=== PATIENT | male | born 1935 | race Caucasian/White ===

== ENCOUNTER 2024-08-08 14:25 | Inpatient (IN) | payer MEDICARE, SELFPAY ==
--- NOTE | ~2024-08-08 | CT_ITS ---
CLINICAL HISTORY: acute kidney injury CT abdomen and pelvis without contrast Comparison: None Findings: Limited examination without contrast. Lung bases are clear. No pleural effusion. Liver, Spleen and both adrenals show normal size, shape and attenuation on present unenhanced scan. No CBD dilatation. Cholecystectomy. The pancreas is atrophic. Limited evaluation of the multiple renal cysts measuring up to 10 cm on the right. There is mild calcification along the wall of multiple renal cysts. There are indeterminate lesions of the upper and lower pole right kidney measuring 1.7 x 1.9 cm in the upper pole series 3, image 18. No hydronephrosis. Calcifications of the bilateral renal pelvis could represent vascular calcification or kidney stone. The IVC, aorta and portal vein are within normal position and caliber. Atherosclerosis calcification of the abdominal aorta. Small 3 cm aneurysm of the distal abdominal aorta. No evidence of retroperitoneal lymphadenopathy or ascites. There is bowel wall thickening of the colon. Appendix is not visualized. Focal soft tissue thickening of the right side of the bladder. There is enlargement of the prostate gland. Multilevel degenerative changes of the lumbar spine. There is a sclerotic lesion in the right L3 pedicle. IMPRESSION: No hydronephrosis. Indeterminate lesions of the right kidney. Ultrasound correlation is recommended. Multiple bilateral renal cysts. Small abdominal aortic aneurysm. Bowel wall thickening of the colon. Colitis can not be excluded. Focal soft tissue thickening of the bladder. Cystoscopy evaluation as indicated to exclude a mass. Sclerotic lesion of the right L3 pedicle. Clinical correlation is recommended to exclude bony metastasis. Additional findings as above. This document has been electronically signed by: Leo Vega MD on 08/08/2024 19:24:19
--- NOTE | ~2024-08-08 | CT_ITS ---
CLINICAL HISTORY: fall CT head without contrast Comparison: None Findings: No intra-axial mass, midline shift, hydrocephalus, or acute hemorrhage. Mild cerebral atrophy. There is no sinus or mastoid fluid. The orbits are unremarkable. No skull fracture. IMPRESSION: 1. No acute intracranial findings This document has been electronically signed by: Garrett Samuels MD on 08/09/2024 02:23:53
[2024-08-08 14:57] VITALS: BP 123/69; BP 127/75; PULSE 71; PULSE 77; RESP 16; TEMP 36.5; O2SAT 97; O2SAT 98; BMI 17.9
--- NOTE | 2024-08-08 15:01 | ECG_ITS ---
Test Reason : DEHYDRATION Blood Pressure : / mmHG Vent. Rate : 073 BPM Atrial Rate : 227 BPM P-R Int : 000 ms QRS Dur : 138 ms QT Int : 414 ms P-R-T Axes : 000 018 081 degrees QTc Int : 456 ms Atrial fibrillation Non-specific intra-ventricular conduction block Cannot rule out Septal infarct , age undetermined Abnormal ECG No previous ECGs available Referred By: Dorothy Gallegos Electronically Signed By:RYLAN BYRD MD
--- NOTE | 2024-08-08 15:02 | ED_ITS ---
HPI - General Adult General Chief complaint: Recheck/Abnormal Lab/Rx Stated complaint: ABN LABS,ALTERED SINCE LAST NIGHT FROM SNF Time Seen by Provider: 08/08/24 14:28 Source: patient, EMS and old records reviewed Mode of arrival: EMS Limitations: other (poor historian) History of Present Illness ED Provider: JANICE HPI narrative: 88 yo male with PMH of syncope, hypotension, asthma, afib on eliquis, CAD, CHF, GERD, HLD, hypothyroidism, FULL CODE here with c/o stating his labs are abnormal and that his kidney function is up. He himself denies any new complaints states he was just at [facility] and was told he had lung cancer but he isn't sure if he is on chemo. He tells me he is sick of all of this due to going back and forth between [facility], [facility] and here. He states he is just tired. He tells me he is drinking not having n/v/d and that he makes urine Damien Montero notes abnormal lab but then no report about level complaint: abnormal lab Onset (ago): unknown Radiation: non-radiation Severity: moderate Relieving factors: none Exacerbating factors: none Associated symptoms: denies other symptoms Treatments prior to arrival: none Related Data Allergies Allergy/AdvReac Type Severity Reaction Status Date / Time aspirin Allergy Unknown Unknown Verified 08/08/24 15:04 cyanocobalamin (vitamin B12) Allergy Unknown Unknown Verified 08/08/24 15:04 NSAIDS (Non-Steroidal Allergy Unknown Unknown Verified 08/08/24 15:04 Anti-Inflamma sulfamethoxazole Allergy Unknown Unknown Verified 08/08/24 15:04 [From Bactrim] thiamine (vitamin B1) Allergy Unknown Unknown Verified 08/08/24 15:04 trimethoprim [From Bactrim] Allergy Unknown Unknown Verified 08/08/24 15:04 Review of Systems Review of Systems: Constitutional : No Fever, No Chills, pos Fatigue ENT/Mouth : No sore throat, No Rhinorrhea Eyes: No Eye Pain, No Swelling, No Redness Cardiovascular : No Chest Pain, No SOB, No Dyspnea on Exertion Respiratory : No Cough, No Sputum Gastrointestinal : No Nausea, No Vomiting, No Diarrhea, No abdominal Pain Genitourinary : No Dysuria, No Urinary Frequency, No Hematuria, Musculoskeletal : No joint pain, No Myalgias, No Joint Swelling Skin : No Skin Lesions, No rash Neuro : pos Weakness, No Numbness, No Dizziness, no Headache Psych : No Anxiety/Panic, No Depression Heme/Lymph: No Bruising, No Bleeding,No Lymphadenopathy Endocrine : No Polyuria, No Polydipsia All other systems reviewed and are negative [facility] Past Medical History Attestation statement: The following information was validated with the patient. Source: old records reviewed Medical History (Updated 08/08/24 @ 15:32 by Dorothy Gallegos DO) Hypothyroidism PAF (paroxysmal atrial fibrillation) CKD (chronic kidney disease) Anxiety BPH (benign prostatic hyperplasia) Social History Social History (Updated 08/08/24 @ 15:04 by Dorothy Gallegos DO) Patient Tobacco Use Status: Tobacco use Unknown Advance Directives: No Advance Directives Information Provided: No Do you have a plan to hurt others: No Plan Physical Exam ED Vital Signs: Vital Signs - 24 hr 08/08/24 14:57 Temperature 97.7 F Pulse Rate 77 Respiratory Rate 16 Blood Pressure 123/69 Pulse Oximetry 97 Oxygen Delivery Method Room Air BMI result Body Mass Index 17.9 Appearance: Alert. Oriented X3. No acute distress. Eyes: Pupils equal, round and reactive to light. ENT: Pharynx very dry with dry lips Neck: Normal inspection. Neck supple. CVS: Normal heart rate and rhythm. Pulses normal. Respiratory: No respiratory distress. Breath sounds normal. Abdomen: Soft and nontender. Skin: warm and pale, poor skin turgor. Extremities: No lower extremity edema. No calf ttp Neuro: Oriented X 3. No motor deficit. No sensory deficit. Course Course Course Narrative: signed out to Dr. Moy pending work up Medical Decision Making Medical Decision Making [facility] Narrative: 88 yo male with PMH of syncope, hypotension, asthma, afib on eliquis, CAD, CHF, GERD, HLD, hypothyroidism, FULL CODE here with c/o abnormal labs but he has never been here before and we have no baseline. I am going to repeat labs and talk to [facility] or [facility] about labs. I have put in bladder scan as well and urine. Will start on fluids given appearance of his mouth. Differential Diagnosis Differential Diagnoses: The differential diagnosis associated with the presentation includes ERICA on CKD, retention, malignancy, dehydration Admission/Observation Consideration of admission/observation: Escalation of care including admission/observation considered Lab Data [facility] Lab Attestation statement: I reviewed the patient's lab results. Independent Interpretation I performed an independent interpretation of an: EKG Interpretation: Rate: 73 Rhythm: irregular afib [facility]: normal Normal QRS complex. ST T wave : no YOLANDA qTC: 456 prior studies:no prior but has hx of afib The study has been interpreted contemporaneously by me. . Independent Historian Clinical information obtained from an independent historian. History obtained from or confirmed by: EMS External Record Review External record reviewed: Outpatient record Discharge Plan Discharge Clinical Impression: Acute dehydration Patient Disposition: Still a Patient Print Language: Estonian
[2024-08-08] MEDS: 0.9 % Sodium Chloride 1,000 ML 999 ML IV (16:00)
[2024-08-08 17:42] LABS: MANUAL DIFF FLAG NO
[2024-08-08 17:50] LABS: Eosinophils Percent Auto 0.3 % (0-4); Hematocrit 31.5 % (42.0-52.0); Hemoglobin 10.9 g/dl (14.0-18.0); Imm Gran Abs Auto 0.03 X10*3/uL (0.00-0.03); Imm Gran Pct Auto 0.5 % (0.0-0.4); Lymphocytes Absolute Auto 0.1 X10*3/uL (1.2-4.9); Lymphocytes Percent Auto 1.2 % (20-40); Mean Corpuscular HGB Conc 34.6 g/dl (31.0-36.0); Mean Corpuscular Hemoglobin 31.8 pg (27.0-33.0); Mean Corpuscular Volume 91.8 fL (80.0-98.0); Monocytes Absolute Auto 0.7 X10*3/uL (0.1-1.2); Monocytes Percent Auto 10.7 % (2-11); Neutrophils Absolute Auto 5.3 x10*3/uL (2.0-8.3); Neutrophils Percent Auto 87.3 % (45-73); Red Blood Count 3.43 X10*6/uL (4.60-5.80); Red Cell Distribution Width 14.8 % (11.0-16.0); White Blood Count 6.1 X10*3/uL (4.8-10.8)
[2024-08-08 17:59] LABS: Mean Platelet Volume 10.1 fL (9.4-12.4); Platelet Count 94 X10*3/uL (160-400)
[2024-08-08 18:05] LABS: Alanine Aminotransferase 18 U/L (0-40); Albumin Level 3.3 g/dL (3.5-5.0); Alkaline Phosphatase 123 U/L (39-117); Anion Gap 15 (12-20); Aspartate Amino Transferase 43 U/L (5-37); Bilirubin Direct 0.4 mg/dL (0.0-0.5); Bilirubin Total 0.8 mg/dL (0.0-1.0); Blood Urea Nitrogen 86 mg/dL (9-16); Calcium 10.1 mg/dL (8.4-10.2); Carbon Dioxide 18 mmol/L (22-29); Chloride 116 mmol/L (96-108); Creatinine Clr Calc Pharmacy 6.8; Estimated Glomerular Filt Rate 9; Glucose Random 101 mg/dL (60-115); Lipase 8 U/L (8-78); Magnesium 2.8 mg/dL (1.6-2.6); Potassium 5.3 mmol/L (3.3-5.1); Sodium 144 mmol/L (135-145); Total Protein 5.6 g/dL (6.5-8.0)
[2024-08-08 18:11] LABS: Troponin-I High Sensitivity 416.1 ng/L (<3.5-35.0)
[2024-08-08] MEDS: Lactated Ringers 1,000 ML 999 ML IV (19:05)
--- NOTE | 2024-08-08 20:15 | MHC.EDTECH ---
pt able to produce 175 mL of urine at this time, provider requests bladder scan
--- NOTE | 2024-08-08 20:24 | P.HPHOSP_ITS ---
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 Patient denies any complaints at the time of my evaluation. States he has had adequate p.o. intake and denies vomiting or diarrhea. He does note that he is here for altered kidney function. Blood work was done at [facility] and he was sent for evaluation of abnormal kidney function. No fever, chills, chest pain palpitations, shortness of breath, abdominal pain, changes in urinary or bowel habits. In the emergency department, kidney function found to be 6.21 and patient was resuscitated with IV crystalloids Review of Systems 2 Constitutional: Constitutional: Reports fatigue and Reports malaise Cardiovascular: Cardiovascular: Reports no additional cardiovascular complaints Respiratory: Respiratory: Reports no additional respiratory complaints Gastrointestinal: Gastrointestinal: Reports no additional gastrointestinal complaints Genitourinary: Genitourinary: Reports no additional male genitourinary complaints Endocrine: Endocrine: Reports fatigue PMFSH Medical History Hypothyroidism PAF (paroxysmal atrial fibrillation) CKD (chronic kidney disease) Anxiety BPH (benign prostatic hyperplasia) Pertinent family history: Not significant due to age Social History Patient Tobacco Use Status: Tobacco use Unknown Advance Directives: No Advance Directives Information Provided: No Do you have a plan to hurt others: No Plan Meds Allergies Allergy/AdvReac Type Severity Reaction Status Date / Time aspirin Allergy Unknown Unknown Verified 08/08/24 15:04 cyanocobalamin (vitamin B12) Allergy Unknown Unknown Verified 08/08/24 15:04 NSAIDS (Non-Steroidal Allergy Unknown Unknown Verified 08/08/24 15:04 Anti-Inflamma sulfamethoxazole Allergy Unknown Unknown Verified 08/08/24 15:04 [From Bactrim] thiamine (vitamin B1) Allergy Unknown Unknown Verified 08/08/24 15:04 trimethoprim [From Bactrim] Allergy Unknown Unknown Verified 08/08/24 15:04 Physical Exam 2 Vital Signs and Narrative: Vital Signs: Last Vital Signs Temp 97.7 F 08/08/24 14:57 Pulse 77 08/08/24 14:57 Resp 16 08/08/24 14:57 BP 123/69 08/08/24 14:57 Pulse Ox 97 08/08/24 14:57 O2 Del Method Room Air 08/08/24 14:57 BMI result Body Mass Index 17.9 Elderly male lying in bed in no distress Neck supple, no JVD, dry mucous membranes Regular rate and rhythm, S1-S2 heard Regular breath sounds bilaterally, no wheezing or crackles appreciated Abdomen soft nontender, no guarding, no rigidity Patient is awake, alert and oriented x3 ; no focal motor deficit Psych: Normal mood No pedal edema Results Labs 08/08/24 17:39 08/08/24 17:39 Labs: Laboratory Results - last 24 hr 08/08/24 08/08/24 17:38 17:39 MCV 91.8 MCH 31.8 MCHC 34.6 RDW 14.8 Plt Count 94 L MPV 10.1 Immature Gran % (Auto) 0.5 H Neut % (Auto) 87.3 H Lymph % (Auto) 1.2 L Mills % (Auto) 10.7 Eos % (Auto) 0.3 Baso % (Auto) 0.0 Lymph # (Auto) 0.1 L Mills # (Auto) 0.7 Eos # (Auto) 0.0 Baso # (Auto) 0.0 Abs Immat Gran (auto) 0.03 Absolute Neuts (auto) 5.3 Absolute Nucleated RBC 0.000 Nucleated RBC % (auto) 0.0 Anion Gap 15 Estim Creat Clear Calc 6.8 Estimated GFR 9 Random Glucose 101 Calcium 10.1 Magnesium 2.8 H Total Bilirubin 0.8 Direct Bilirubin 0.4 AST 43 H ALT 18 Alkaline Phosphatase 123 H Troponin I High Sens 416.1 H* Total Protein 5.6 L Albumin 3.3 L Lipase 8 Assessment and Plan (1) Acute kidney injury: Status: Acute Plan This is a 88-year-old male with pertinent history of CKD stage 4, chronic atrial fibrillation on anticoagulation, orthostatic hypotension on midodrine, chronic systolic heart failure, CAD status post CABG, uhm-[id number] 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 #. ERICA on CKD stage 4: Resuscitated with IV crystalloids in the ER. UA pending. Monitor creatinine urine output. Nephrology consult. Baseline creatinine 2.8-3.6. No obvious ureteral obstruction on imaging. Obtaining postvoid residual. Avoid nephrotoxins #. Chronic atrial fibrillation: Anticoagulated with Eliquis. On amiodarone #. Chronic systolic heart failure: Lasix discontinued during previous hospitalization due to orthostasis. Continue to hold and monitor volume status #. Orthostatic hypotension: On midodrine. #. Hypothyroidism: On Synthroid #. CAD status post CABG: On high-intensity statin. Not on antiplatelet agent #. Mood disorder: Continue home mood stabilizers #. Thrombocytopenia, chronic #. Anemia of chronic kidney disease: Hemoglobin stable Med rec pending DVT prophylaxis: Roel Full code Admit as inpatient and will require two night minimum hospital stay for close monitoring of kidney function (as above), which is not possible in a lesser acute setting. Quality Stroke Does the patient have a stroke diagnosis?: No VTE Prior VTE?: No VTE Risk Level:: Medical - moderate - high VTE Device Contraindication: Treatment Not Indicated VTE Drug Contraindication: N/A - Med Ordered
[2024-08-08 20:28] LABS: Appearance Urine Clear; Color Urine Yellow; Glucose Urine UA 500 mg/dL (Negative); Leukocyte Esterase Urine Negative (Negative); Nitrite Urine Negative (Negative); PH 5.5 (5.0-9.0); Specific Gravity - Urine 1.015 (1.005-1.025); UMIC TRIGGER UACC YES; Urine Blood Negative (Negative); Urine Ketones Negative (Negative); Urine Protein 30 (1+) mg/dL (Neg-Trace)
[2024-08-08 20:30] LABS: Bacteria Urine None Seen (None Seen); Hyaline Casts Urine 0-2 /LPF (0-2); RBC Urine 0-2 /HPF (0-2); Squamous Epithelial Cell Urine 0-2 /HPF (0-2); WBC Urine 0-5 /HPF (0-5)
--- NOTE | 2024-08-08 21:11 | PHA.MEDREC ---
Pharmacy Consult ? Medication Reconciliation Pharmacy has completed the medication reconciliation. LIST FROM ROSMERY DAVIDSON
--- NOTE | 2024-08-09 00:37 | PC.NURSE ---
Pt found on floor, unknown if fell, unknown head strike. Hospitalist notified, plan for head CT prior to transport to floor. Camera at bedside for monitoring.
--- NOTE | 2024-08-09 00:47 | PC.NURSE ---
Patient was found by passerby on the floor of his room, knocking on the glass. Patient assisted back into bed and checked over for any skin abnormalities or locations of pain. Patient denies any pain at this time. Hospitalist notified and ordered head CT. Patient received head CT and moved into hospital bed with bed exit alarm placed on and a camera monitor placed in the room.
[2024-08-09] MEDS: 0.9 % Sodium Chloride Flush 3 ML SYRINGE IVFLUSH ×2 (01:14→11:16)
[2024-08-09 01:23] VITALS: BP 138/82; PULSE 86; RESP 16; O2SAT 95
--- NOTE | 2024-08-09 01:36 | PC.NURSE ---
Patient currently sleeping in bed with warm blankets. Camera and clip alarm present as well as bed exit alarm on.
[2024-08-09 02:45] VITALS: BP 134/67; PULSE 81; RESP 18; TEMP 36.2; O2SAT 97
[2024-08-09 03:08] VITALS: BMI 19.1
--- NOTE | 2024-08-09 03:30 | PC.NURSE ---
pt did not have a hearing aid in right ear on arrival to room 346 from the er.Pt states he has not had his hearing aid since yesturday.
[2024-08-09 05:34] LABS: MANUAL DIFF FLAG NO
[2024-08-09 05:36] LABS: Eosinophils Percent Auto 0.4 % (0-4); Hematocrit 31.9 % (42.0-52.0); Hemoglobin 11.2 g/dl (14.0-18.0); Imm Gran Abs Auto 0.03 X10*3/uL (0.00-0.03); Imm Gran Pct Auto 0.4 % (0.0-0.4); Lymphocytes Absolute Auto 0.1 X10*3/uL (1.2-4.9); Lymphocytes Percent Auto 1.2 % (20-40); Mean Corpuscular HGB Conc 35.1 g/dl (31.0-36.0); Mean Corpuscular Volume 91.1 fL (80.0-98.0); Mean Platelet Volume 10.8 fL (9.4-12.4); Monocytes Absolute Auto 0.8 X10*3/uL (0.1-1.2); Monocytes Percent Auto 10.1 % (2-11); Neutrophils Absolute Auto 6.7 x10*3/uL (2.0-8.3); Neutrophils Percent Auto 87.9 % (45-73); Red Cell Distribution Width 14.6 % (11.0-16.0); White Blood Count 7.6 X10*3/uL (4.8-10.8)
[2024-08-09 05:37] LABS: Platelet Count 97 X10*3/uL (160-400)
[2024-08-09 05:52] LABS: Anion Gap 18 (12-20); Blood Urea Nitrogen 84 mg/dL (9-16); Calcium 10.5 mg/dL (8.4-10.2); Carbon Dioxide 15 mmol/L (22-29); Chloride 118 mmol/L (96-108); Creatinine Clr Calc Pharmacy 7.1; Estimated Glomerular Filt Rate 9; Glucose Random 93 mg/dL (60-115); Potassium 5.4 mmol/L (3.3-5.1); Sodium 146 mmol/L (135-145)
[2024-08-09 07:14] VITALS: BP 129/61; PULSE 89; RESP 18; TEMP 36.6; O2SAT 97
[2024-08-09] MEDS: Sodium Zirconium Cyclosilicate 10 GM POWD.PACK PO (08:33)
[2024-08-09] MEDS: Levothyroxine Sodium 88 MCG TABLET PO (08:33)
[2024-08-09 08:58] LABS: Troponin-I High Sensitivity 538.7 ng/L (<3.5-35.0)
--- NOTE | 2024-08-09 10:30 | P.CONNP_ITS ---
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 Patient denies any complaints at the time of my evaluation. States he has had adequate p.o. intake and denies vomiting or diarrhea. Usually sees Dr. Castillo Welch in the outpatient setting Review of Systems Review of Systems Yes Unobtainable due to mental condition PMFSH Past Medical History Medical History Hypothyroidism PAF (paroxysmal atrial fibrillation) CKD (chronic kidney disease) Anxiety BPH (benign prostatic hyperplasia) Social History Social History Housing: Assisted Living Facility Do you presently have visiting nurse or other home services: No Patient Tobacco Use Status: Never used Tobacco Meds Allergies Allergy/AdvReac Type Severity Reaction Status Date / Time aspirin Allergy Unknown Unknown Verified 08/08/24 15:04 cyanocobalamin (vitamin B12) Allergy Unknown Unknown Verified 08/08/24 15:04 NSAIDS (Non-Steroidal Allergy Unknown Unknown Verified 08/08/24 15:04 Anti-Inflamma sulfamethoxazole Allergy Unknown Unknown Verified 08/08/24 15:04 [From Bactrim] thiamine (vitamin B1) Allergy Unknown Unknown Verified 08/08/24 15:04 trimethoprim [From Bactrim] Allergy Unknown Unknown Verified 08/08/24 15:04 Active Medications: Current Medications Acetaminophen (Acetaminophen 325 Mg Tablet) 650 mg PO Q6H PRN PRN Reason: Pain, Mild 1-3,fever,headache Alprazolam (Alprazolam 0.5 Mg Tablet) 0.5 mg PO BEDTIME KRISTY Amiodarone HCl (Amiodarone Hcl 200 Mg Tablet) 200 mg PO DAILY KRISTY Apixaban (Apixaban 2.5 Mg Tablet) 2.5 mg PO BID KRISTY Last Admin: 08/09/24 08:57 Dose: Not Given Bisacodyl (Bisacodyl 10 Mg Supp.Rect) 10 mg HI DAILY PRN PRN Reason: Constipation Bupropion HCl (Bupropion Hcl Xl 150 Mg Tab.Er.24h) 150 mg PO BEDTIME [facility] Calcium Carbonate (Calcium Carbonate 750 Mg Tab.Chew) 750 mg PO Q4H PRN PRN Reason: Heartburn Famotidine (Famotidine 20 Mg Tablet) 40 mg PO BEDTIME [facility] Fluticasone/Vilanterol (Fluticasone/Vilanterol 200/25 Blst.W.Dev) 1 puff INHALE RDAILY [facility] Last Admin: 08/09/24 08:18 Dose: Not Given Gabapentin (Gabapentin 100 Mg Capsule) 100 mg PO BID [facility] Sodium Chloride (Ns) 1,000 mls @ 80 mls/hr IVCONT .[id number] [facility] Levothyroxine Sodium (Levothyroxine Sodium 88 Mcg Tablet) 88 mcg PO DAILY@0600 [facility] Loperamide HCl (Loperamide Hcl 2 Mg Capsule) 2 mg PO Q6H PRN PRN Reason: Loose Stool Magnesium Hydroxide (Milk Of Magnesia 30 Ml Oral.Susp) 30 ml PO DAILY PRN PRN Reason: Constipation Megestrol Acetate (Megestrol Acetate 400 Mg/10 Ml Oral.Susp) 400 mg PO BID [facility] Melatonin (Melatonin 3 Mg Tablet) 6 mg PO BEDTIME PRN PRN Reason: Insomnia Methylphenidate HCl (Methylphenidate Hcl 10 Mg Tablet) 20 mg PO DAILY [facility] Metoprolol Succinate (Metoprolol Succinate Er 12.5 Mg Halftab.Er.24h) 12.5 mg PO BEDTIME [facility]; Protocol Midodrine (Midodrine Hcl 5 Mg Tablet) 5 mg PO TIDAC [facility] Last Admin: 08/09/24 08:57 Dose: Not Given Ondansetron HCl (Ondansetron Hcl 4 Mg/2 Ml Vial) 4 mg IVPUSH Q8H PRN PRN Reason: Nausea and Vomiting Sodium Biphosphate/Sodium Phosphate (Sodium Phosphate,[place]-Dibasic 133 Ml Enema) 118 ml HI DAILY PRN PRN Reason: Constipation Sodium Chloride (0.9 % Sodium Chloride Flush 3 Ml Syringe) 3 ml IVFLUSH QSHIFT [facility] Last Admin: 08/09/24 01:14 Dose: 3 ml Vitamin D (Cholecalciferol (Vitamin D3) 25 Mcg Tablet) 25 mcg PO DAILY KRISTY Home Medications ?Medication ?Instructions ?Recorded ?Confirmed ?Last Taken ?Type alprazolam 0.5 mg tablet 0.5 mg PO BEDTIME 08/08/24 08/08/24 Unknown History amiodarone 200 mg tablet 200 mg PO DAILY 08/08/24 08/08/24 Unknown History apixaban 2.5 mg tablet (Eliquis) 2.5 mg PO BID 08/08/24 08/08/24 Unknown History atorvastatin 80 mg tablet 80 mg PO BEDTIME 08/08/24 08/08/24 Unknown History bisacodyl 10 mg rectal suppository 10 mg HI DAILY PRN Constipation 08/08/24 08/08/24 Unknown History (Dulcolax (bisacodyl)) bupropion HCl 150 mg tablet,12 hr 150 mg PO BEDTIME 08/08/24 08/08/24 Unknown History sustained-release cholecalciferol (vitamin D3) 25 25 mcg PO DAILY 08/08/24 08/08/24 Unknown History mcg (1,000 unit) tablet empagliflozin 10 mg tablet 10 mg PO DAILY 08/08/24 08/08/24 Unknown History (Jardiance) famotidine 40 mg tablet 40 mg PO BEDTIME 08/08/24 08/08/24 Unknown History fluticasone 500 mcg-salmeterol 50 1 inh inhalation BEDTIME 08/08/24 08/08/24 Unknown History mcg/dose blistr powdr for inhalation (Advair Diskus) gabapentin 100 mg capsule 100 mg PO BID 08/08/24 08/08/24 Unknown History levothyroxine 88 mcg tablet 88 mcg PO DAILY@0630 08/08/24 08/08/24 Unknown History (Levoxyl) loperamide 2 mg capsule 2 mg PO Q6H PRN Loose Stool 08/08/24 08/08/24 Unknown History magnesium hydroxide 400 mg/5 mL 30 ml PO DAILY PRN Constipation 08/08/24 08/08/24 Unknown History oral suspension (Milk of Magnesia) megestrol 400 mg/10 mL (40 mg/mL) 400 mg PO BID 08/08/24 08/08/24 Unknown History oral suspension methylphenidate HCl 20 mg tablet 20 mg PO DAILY 08/08/24 08/08/24 Unknown History (Ritalin) metoprolol succinate 25 mg 12.5 mg PO BEDTIME 08/08/24 08/08/24 Unknown History tablet,extended release 24 hr midodrine 5 mg tablet 5 mg PO TIDAC 08/08/24 08/08/24 Unknown History sodium phosphates 19 gram-7 118 ml HI DAILY PRN Constipation 08/08/24 08/08/24 Unknown History gram/118 mL enema (Fleet Enema) zafirlukast 20 mg tablet (Accolate) 20 mg PO BID 08/08/24 08/08/24 Unknown History Physical Exam Vital Signs: Last Vital Signs Temp 97.9 F 08/09/24 07:14 Pulse 89 08/09/24 07:14 Resp 18 08/09/24 07:14 BP 129/61 08/09/24 07:14 Pulse Ox 97 08/09/24 07:14 O2 Del Method Room Air 08/09/24 07:14 BMI result Body Mass Index 19.1 Comfortable Buccal mucosa is extremely dry Neck supple no JVD. Lungs entry equal no rales. Heart S1-S2 heard no gallop or rub. Abdomen soft nontender. Neuro alert awake oriented. No asterixis. Extremities no edema. Results Lab Results 08/09/24 05:17 08/09/24 05:17 Lab results: Chemistry 08/08/24 08/09/24 17:39 05:17 Sodium 144 146 H Potassium 5.3 H 5.4 H Carbon Dioxide 18 L 15 L BUN 86 H 84 H Creatinine 5.99 H* 6.06 H* Calcium 10.1 10.5 H Hematology 08/08/24 08/09/24 17:39 05:17 WBC 6.1 7.6 Hgb 10.9 L 11.2 L Plt Count 94 L 97 L Urinalysis 08/08/24 20:21 Urine Color Yellow Urine Appearance Clear Urine pH 5.5 Ur Specific Guy 1.015 Urine Protein 30 (1+) H Urine Glucose (UA) 500 H Urine Ketones Negative Urine Blood Negative Urine Nitrite Negative Ur Leukocyte Esterase Negative Urine RBC 0-2 Urine WBC 0-5 Ur Squamous Epith Cells 0-2 Hyaline Casts 0-2 Assessment and Plan (1) Acute kidney injury: Status: Acute (2) Hyperkalemia: Status: Acute Plan ERICA most likely due to severe dehydration. Clinically appears volume depleted. Imaging study did not reveal any obstruction. There were multiple cyst and an indeterminate lesion Recommendations IV hydration with the normal saline. Keep intake more than output. Watch urine output. Kristi p.r.n.. No absolute indication for dialysis at this time. Given his advanced age we will manage him conservatively. Procedures Date of Service Date of Service: 08/09/24
[2024-08-09] MEDS: Cholecalciferol (Vitamin D3) 25 MCG TABLET PO (11:16)
[2024-08-09] MEDS: 0.9 % Sodium Chloride 1,000 ML 80 ML IVCONT ×2 (11:21→23:24)
[2024-08-09] MEDS: Amiodarone HCL 200 MG TABLET PO (11:21)
[2024-08-09] MEDS: Methylphenidate HCl 10 MG TABLET 20 MG PO (11:21)
[2024-08-09] MEDS: Megestrol Acetate 400 MG/10 ML ORAL.SUSP PO ×2 (11:22→20:36)
--- NOTE | 2024-08-09 11:28 | P.PNIM_ITS ---
Subjective Subjective Date of Service: 08/09/24 Interval History: Seen and evaluated this morning feels comfortable but little confused about the reason of hospital stay Cr elevated around 6 Lira placed, has hematuria no other events Review of Systems Review of Systems: Yes all other systems are reviewed and are negative Physical Exam 2 Vital Signs: Vital Signs: Last Vital Signs Temp 97.9 F 08/09/24 07:14 Pulse 89 08/09/24 07:14 Resp 18 08/09/24 07:14 BP 129/61 08/09/24 07:14 Pulse Ox 97 08/09/24 07:14 O2 Del Method Room Air 08/09/24 07:14 BMI result Body Mass Index 19.1 Const: Other: Constitutional : interactive, not in distress Cardiovascular : no JVP, no lower extremity edema Respiratory : bilateral chest movement, not in resp distress Gastrointestinal: soft, lax, Non tender Skin : Warm, Dry Urine: has hematuria, Lira in place Neurological : Alert & oriented , No focal deficit Objective Data Active Medications Acetaminophen (Acetaminophen 325 Mg Tablet) 650 mg PO Q6H PRN PRN Reason: Pain, Mild 1-3,fever,headache Alprazolam (Alprazolam 0.5 Mg Tablet) 0.5 mg PO BEDTIME KRISTY Amiodarone HCl (Amiodarone Hcl 200 Mg Tablet) 200 mg PO DAILY [facility] Apixaban (Apixaban 2.5 Mg Tablet) 2.5 mg PO BID [facility] Last Admin: 08/09/24 08:57 Dose: Not Given Documented By: ROBIN Non-Admin Reason: bleeding, Held med Bisacodyl (Bisacodyl 10 Mg Supp.Rect) 10 mg [place] DAILY PRN PRN Reason: Constipation Bupropion HCl (Bupropion Hcl Xl 150 Mg Tab.Er.24h) 150 mg PO BEDTIME KRISTY Calcium Carbonate (Calcium Carbonate 750 Mg Tab.Chew) 750 mg PO Q4H PRN PRN Reason: Heartburn Famotidine (Famotidine 20 Mg Tablet) 20 mg PO BEDTIME [facility] Fluticasone/Vilanterol (Fluticasone/Vilanterol 200/25 Blst.W.Dev) 1 puff INHALE RDAILY [facility] Last Admin: 08/09/24 08:18 Dose: Not Given Documented By: TRU Non-Admin Reason: pharmacy called Gabapentin (Gabapentin 100 Mg Capsule) 100 mg PO BID [facility] Sodium Chloride (Ns) 1,000 mls @ 80 mls/hr IVCONT .[id number] [facility] Levothyroxine Sodium (Levothyroxine Sodium 88 Mcg Tablet) 88 mcg PO DAILY@0600 [facility] Loperamide HCl (Loperamide Hcl 2 Mg Capsule) 2 mg PO Q6H PRN PRN Reason: Loose Stool Magnesium Hydroxide (Milk Of Magnesia 30 Ml Oral.Susp) 30 ml PO DAILY PRN PRN Reason: Constipation Megestrol Acetate (Megestrol Acetate 400 Mg/10 Ml Oral.Susp) 400 mg PO BID [facility] Melatonin (Melatonin 3 Mg Tablet) 6 mg PO BEDTIME PRN PRN Reason: Insomnia Methylphenidate HCl (Methylphenidate Hcl 10 Mg Tablet) 20 mg PO DAILY [facility] Metoprolol Succinate (Metoprolol Succinate Er 12.5 Mg Halftab.Er.24h) 12.5 mg PO BEDTIME KRISTY; Protocol Midodrine (Midodrine Hcl 5 Mg Tablet) 5 mg PO TIDAC [facility] Last Admin: 08/09/24 08:57 Dose: Not Given Documented By: ROBIN Non-Admin Reason: per BP WNL Ondansetron HCl (Ondansetron Hcl 4 Mg/2 Ml Vial) 4 mg IVPUSH Q8H PRN PRN Reason: Nausea and Vomiting Sodium Biphosphate/Sodium Phosphate (Sodium Phosphate,[place]-Dibasic 133 Ml Enema) 118 ml [place] DAILY PRN PRN Reason: Constipation Sodium Chloride (0.9 % Sodium Chloride Flush 3 Ml Syringe) 3 ml IVFLUSH QSHIFT [facility] Last Admin: 08/09/24 01:14 Dose: 3 ml Documented By: APARNA Vitamin D (Cholecalciferol (Vitamin D3) 25 Mcg Tablet) 25 mcg PO DAILY [facility] Labs 08/09/24 05:17 08/09/24 05:17 Labs: Laboratory Results - last 24 hr 08/08/24 08/08/24 08/08/24 17:38 17:39 20:21 MCV 91.8 MCH 31.8 MCHC 34.6 RDW 14.8 Plt Count 94 L MPV 10.1 Immature Gran % (Auto) 0.5 H Neut % (Auto) 87.3 H Lymph % (Auto) 1.2 L [place] % (Auto) 10.7 Eos % (Auto) 0.3 Baso % (Auto) 0.0 Lymph # (Auto) 0.1 L [place] # (Auto) 0.7 Eos # (Auto) 0.0 Baso # (Auto) 0.0 Abs Immat Gran (auto) 0.03 Absolute Neuts (auto) 5.3 Absolute Nucleated RBC 0.000 Nucleated RBC % (auto) 0.0 Anion Gap 15 Estim Creat Clear Calc 6.8 Estimated GFR 9 Random Glucose 101 Calcium 10.1 Magnesium 2.8 H Total Bilirubin 0.8 Direct Bilirubin 0.4 AST 43 H ALT 18 Alkaline Phosphatase 123 H Troponin I High Sens 416.1 H* Total Protein 5.6 L Albumin 3.3 L Lipase 8 Urine Color Yellow Urine Appearance Clear Urine pH 5.5 Ur Specific [place] 1.015 Urine Protein 30 (1+) H Urine Glucose (UA) 500 H Urine Ketones Negative Urine Blood Negative Urine Nitrite Negative Ur Leukocyte Esterase Negative Urine RBC 0-2 Urine WBC 0-5 Ur Squamous Epith Cells 0-2 Urine Bacteria None Seen Hyaline Casts 0-2 08/09/24 08/09/24 05:17 07:37 MCV 91.1 MCH 32.0 MCHC 35.1 RDW 14.6 Plt Count 97 L MPV 10.8 Immature Gran % (Auto) 0.4 Neut % (Auto) 87.9 H Lymph % (Auto) 1.2 L [place] % (Auto) 10.1 Eos % (Auto) 0.4 Baso % (Auto) 0.0 Lymph # (Auto) 0.1 L [place] # (Auto) 0.8 Eos # (Auto) 0.0 Baso # (Auto) 0.0 Abs Immat Gran (auto) 0.03 Absolute Neuts (auto) 6.7 Absolute Nucleated RBC 0.000 Nucleated RBC % (auto) 0.0 Anion Gap 18 Estim Creat Clear Calc 7.1 Estimated GFR 9 Random Glucose 93 Calcium 10.5 H Magnesium Total Bilirubin Direct Bilirubin AST ALT Alkaline Phosphatase Troponin I High Sens 538.7 H* Total Protein Albumin Lipase Urine Color Urine Appearance Urine pH Ur Specific [place] Urine Protein Urine Glucose (UA) Urine Ketones Urine Blood Urine Nitrite Ur Leukocyte Esterase Urine RBC Urine WBC Ur Squamous Epith Cells Urine Bacteria Hyaline Casts Assessment and Plan (1) Hyperkalemia: Status: Acute (2) Acute kidney injury: Status: Acute (3) Acute dehydration: Status: Acute (4) Hematuria: Status: Acute Plan This is a 88-year-old male with pertinent history of CKD stage 4, chronic atrial fibrillation on anticoagulation, orthostatic hypotension on midodrine, chronic systolic heart failure, CAD status post CABG, 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 # ERICA on CKD stage 4 with acute hyperkalemia and hypernatremia Baseline creatinine 2.8-3.6 (was recently in [place] [facility] asked for paperwork, still pending) Keep on IV crystalloids Lokelma for high K UA negative for blood, developed hematuria from Lira placement Nephrology consult. No obvious ureteral obstruction on CT imaging. Avoid nephrotoxins , hold Gabapentin Follow I\O and BMP # Acute hematuria likely from Lira placement reported mass like lesion in bladder in CT scan on IVF Hold Eliquis and monitor hematuria # Chronic atrial fibrillation Hold Eliquis. continue amiodarone # Chronic systolic heart failure It seems Lasix discontinued during previous hospitalization due to orthostasis. monitor volume status # Orthostatic hypotension On midodrine. BP ok, we can hold for now # Hypothyroidism, On Synthroid # CAD status post CABG, Hold statin for ERICA. 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 I told him we will reevaluate during hospital stay and let him know if HCP invoked. The patient at this point not grasping what is he dealing with and HCP most likely to be invoked if that does not improve. Admit as inpatient and will require overnight hospital stay for close monitoring of kidney function, IVF and nephrology evaluation, which is not possible in a lesser acute setting. Quality Stroke Does the patient have a stroke diagnosis?: No VTE Prior VTE?: No VTE Risk Level:: Medical - moderate - high VTE Device Contraindication: Treatment Not Indicated VTE Drug Contraindication: N/A - Med Ordered
--- NOTE | 2024-08-09 12:50 | MHC.CM.PN ---
PT FROM [facility] HE WILL RETURN WHEN DCD
--- NOTE | 2024-08-09 13:13 | MHC.CM.PN ---
DEAN RAHUL IS PTS [facility] [phone] CELL [phone], OFFICE [phone]
[2024-08-09 15:25] VITALS: BP 136/71; PULSE 84; RESP 18; TEMP 37; O2SAT 98
[2024-08-09 18:58] VITALS: BP 114/59; PULSE 78; RESP 18; TEMP 36.5; O2SAT 99
--- NOTE | 2024-08-09 19:41 | PC.NURSE ---
Pt with dark bloody urine this am via ricketts as reported from previous shift. MD at bedside in am aware. 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 Dr. George paged and made aware. No new orders at this time. Per MD notify if new clots. oncoming RN aware.
[2024-08-09] MEDS: ALPRAZolam 0.5 MG TABLET PO (20:36)
[2024-08-09] MEDS: Acetaminophen 325 MG TABLET 650 MG PO (20:36)
[2024-08-09] MEDS: buPROPion HCl XL 150 MG TAB.ER.24H PO (20:37)
[2024-08-09] MEDS: Famotidine 20 MG TABLET PO (20:37)
[2024-08-09] MEDS: Metoprolol Succinate ER 12.5 MG HALFTAB.ER.24H PO (20:37)
[2024-08-09 23:29] VITALS: BP 118/56; PULSE 80; RESP 18; TEMP 36.7; O2SAT 98
[2024-08-10] MEDS: Levothyroxine Sodium 88 MCG TABLET PO (05:51)
[2024-08-10 07:29] VITALS: BP 128/66; PULSE 71; RESP 20; TEMP 36.1; O2SAT 98
[2024-08-10 07:48] LABS: Eosinophils Absolute Auto 0.1 X10*3/uL (0.0-0.4); Eosinophils Percent Auto 1.6 % (0-4); Hematocrit 28.1 % (42.0-52.0); Hemoglobin 9.7 g/dl (14.0-18.0); Imm Gran Abs Auto 0.02 X10*3/uL (0.00-0.03); Imm Gran Pct Auto 0.3 % (0.0-0.4); Lymphocytes Absolute Auto 0.1 X10*3/uL (1.2-4.9); Lymphocytes Percent Auto 1.5 % (20-40); Mean Corpuscular HGB Conc 34.5 g/dl (31.0-36.0); Mean Corpuscular Hemoglobin 32.3 pg (27.0-33.0); Mean Corpuscular Volume 93.7 fL (80.0-98.0); Mean Platelet Volume 10.6 fL (9.4-12.4); Monocytes Absolute Auto 0.5 X10*3/uL (0.1-1.2); Monocytes Percent Auto 8.9 % (2-11); Neutrophils Absolute Auto 5.3 x10*3/uL (2.0-8.3); Neutrophils Percent Auto 87.7 % (45-73); Red Cell Distribution Width 14.8 % (11.0-16.0); White Blood Count 6.1 X10*3/uL (4.8-10.8)
[2024-08-10 07:49] LABS: Platelet Count 87 X10*3/uL (160-400)
[2024-08-10] MEDS: Fluticasone/Vilanterol 200/25 BLST.W.DEV 1 PUFF INHALE (07:53)
[2024-08-10 08:18] LABS: Anion Gap 15 (12-20); Blood Urea Nitrogen 86 mg/dL (9-16); Calcium 9.8 mg/dL (8.4-10.2); Carbon Dioxide 17 mmol/L (22-29); Chloride 119 mmol/L (96-108); Creatinine Clr Calc Pharmacy 7.4; Estimated Glomerular Filt Rate 9; Glucose Random 103 mg/dL (60-115); Potassium 4.7 mmol/L (3.3-5.1); Sodium 146 mmol/L (135-145)
[2024-08-10 08:29] LABS: MANUAL DIFF FLAG NO
[2024-08-10] MEDS: Amiodarone HCL 200 MG TABLET PO (10:35)
[2024-08-10] MEDS: Cholecalciferol (Vitamin D3) 25 MCG TABLET PO (10:35)
[2024-08-10] MEDS: Megestrol Acetate 400 MG/10 ML ORAL.SUSP PO ×2 (10:35→19:39)
--- NOTE | 2024-08-10 10:35 | HO.PM.IMPN ---
Subjective Subjective Date of Service: 08/10/24 Interval History: no complaints, able to explain where he is, and aware hospitalization is for acute on chronic kidney disease, is aware of who his physicians are. Physical Exam Vital Signs: Vital Signs: Last Vital Signs Temp 97.0 F 08/10/24 07:29 Pulse 71 08/10/24 07:29 Resp 20 08/10/24 07:29 BP 128/66 08/10/24 07:29 Pulse Ox 98 08/10/24 07:29 O2 Del Method Room Air 08/10/24 07:29 BMI result Body Mass Index 19.1 Const: Other: Constitutional : interactive, not in distress Cardiovascular : no JVP, no lower extremity edema Respiratory : bilateral chest movement, not in resp distress Gastrointestinal: soft, lax, Non tender Skin : Warm, Dry Urine: Lira in place Neurological : Alert & oriented , No focal deficit Objective Data Active Medications Acetaminophen (Acetaminophen 325 Mg Tablet) 650 mg PO Q6H PRN PRN Reason: Pain, Mild 1-3,fever,headache Last Admin: 08/09/24 20:36 Dose: 650 mg Documented By: MARGARET Alprazolam (Alprazolam 0.5 Mg Tablet) 0.5 mg PO BEDTIME [facility] Last Admin: 08/09/24 20:36 Dose: 0.5 mg Documented By: MARGARET Amiodarone HCl (Amiodarone Hcl 200 Mg Tablet) 200 mg PO DAILY [facility] Last Admin: 08/09/24 11:21 Dose: 200 mg Documented By: ROBIN Apixaban (Apixaban 2.5 Mg Tablet) 2.5 mg PO BID [facility] Last Admin: 08/09/24 08:57 Dose: Not Given Documented By: ROBIN Non-Admin Reason: bleeding, Held med Bisacodyl (Bisacodyl 10 Mg Supp.Rect) 10 mg [place] DAILY PRN PRN Reason: Constipation Bupropion HCl (Bupropion Hcl Xl 150 Mg Tab.Er.24h) 150 mg PO BEDTIME [facility] Last Admin: 08/09/24 20:37 Dose: 150 mg Documented By: MARGARET Calcium Carbonate (Calcium Carbonate 750 Mg Tab.Chew) 750 mg PO Q4H PRN PRN Reason: Heartburn Famotidine (Famotidine 20 Mg Tablet) 20 mg PO BEDTIME [facility] Last Admin: 08/09/24 20:37 Dose: 20 mg Documented By: MARGARET Fluticasone/Vilanterol (Fluticasone/Vilanterol 200/25 Blst.W.Dev) 1 puff INHALE RDAILY [facility] Last Admin: 08/10/24 07:53 Dose: 1 puff Documented By: JOHN Gabapentin (Gabapentin 100 Mg Capsule) 100 mg PO BID [facility] Sodium Chloride (Ns) 1,000 mls @ 80 mls/hr IVCONT .[id number] [facility] Last Admin: 08/09/24 23:24 Dose: 80 mls/hr Documented By: MARGARET Levothyroxine Sodium (Levothyroxine Sodium 88 Mcg Tablet) 88 mcg PO DAILY@0600 [facility] Last Admin: 08/10/24 05:51 Dose: 88 mcg Documented By: MARGARET Loperamide HCl (Loperamide Hcl 2 Mg Capsule) 2 mg PO Q6H PRN PRN Reason: Loose Stool Magnesium Hydroxide (Milk Of Magnesia 30 Ml Oral.Susp) 30 ml PO DAILY PRN PRN Reason: Constipation Megestrol Acetate (Megestrol Acetate 400 Mg/10 Ml Oral.Susp) 400 mg PO BID [facility] Last Admin: 08/09/24 20:36 Dose: 400 mg Documented By: MARGARET Melatonin (Melatonin 3 Mg Tablet) 6 mg PO BEDTIME PRN PRN Reason: Insomnia Methylphenidate HCl (Methylphenidate Hcl 10 Mg Tablet) 20 mg PO DAILY [facility] Last Admin: 08/09/24 11:21 Dose: 20 mg Documented By: ROBIN Metoprolol Succinate (Metoprolol Succinate Er 12.5 Mg Halftab.Er.24h) 12.5 mg PO BEDTIME [facility]; Protocol Last Admin: 08/09/24 20:37 Dose: 12.5 mg Documented By: MARGARET Midodrine (Midodrine Hcl 5 Mg Tablet) 5 mg PO TIDAC [facility] Last Admin: 08/10/24 07:30 Dose: Not Given Documented By: ROBIN Non-Admin Reason: bp WNL Ondansetron HCl (Ondansetron Hcl 4 Mg/2 Ml Vial) 4 mg IVPUSH Q8H PRN PRN Reason: Nausea and Vomiting Sodium Biphosphate/Sodium Phosphate (Sodium Phosphate,[place]-Dibasic 133 Ml Enema) 118 ml [place] DAILY PRN PRN Reason: Constipation Sodium Chloride (0.9 % Sodium Chloride Flush 3 Ml Syringe) 3 ml IVFLUSH QSHIFT [facility] Last Admin: 08/10/24 00:06 Dose: Not Given Documented By: MARGARET Non-Admin Reason: IV Running Vitamin D (Cholecalciferol (Vitamin D3) 25 Mcg Tablet) 25 mcg PO DAILY [facility] Last Admin: 08/09/24 11:16 Dose: 25 mcg Documented By: ROBIN Labs 08/10/24 07:39 08/10/24 07:39 Labs: Laboratory Results - last 24 hr 08/10/24 07:39 MCV 93.7 MCH 32.3 MCHC 34.5 RDW 14.8 Plt Count 87 L MPV 10.6 Immature Gran % (Auto) 0.3 Neut % (Auto) 87.7 H Lymph % (Auto) 1.5 L [place] % (Auto) 8.9 Eos % (Auto) 1.6 Baso % (Auto) 0.0 Lymph # (Auto) 0.1 L [place] # (Auto) 0.5 Eos # (Auto) 0.1 Baso # (Auto) 0.0 Abs Immat Gran (auto) 0.02 Absolute Neuts (auto) 5.3 Absolute Nucleated RBC 0.000 Nucleated RBC % (auto) 0.0 Anion Gap 15 Estim Creat Clear Calc 7.4 Estimated GFR 9 Random Glucose 103 Calcium 9.8 D Assessment and Plan (1) Hyperkalemia: Status: Acute (2) Acute kidney injury: Status: Acute (3) Acute dehydration: Status: Acute (4) Hematuria: Status: Acute Plan 88M PMH CKD stage 4, chronic atrial fibrillation on anticoagulation, orthostatic hypotension on midodrine, chronic systolic heart failure, CAD status post CABG, [id number] 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 ERICA on CKD stage 4 with acute hyperkalemia and hypernatremia Baseline creatinine 2.8-3.6 (was recently in [place] [facility] asked for paperwork, still pending) improving on NS Hyperkalemia resolved with lokelma UA negative for blood, developed hematuria from Lira placement Nephrology following No obvious ureteral obstruction on CT imaging. Avoid nephrotoxins , hold Gabapentin Follow I\O and BMP Acute hematuria likely from Lira placement reported mass like lesion in bladder in CT scan Hold Eliquis and monitor hematuria Outpatient urology eval Chronic atrial fibrillation Hold Eliquis for hematuria, continue amiodarone Chronic systolic heart failure It seems Lasix discontinued during previous hospitalization due to orthostasis. Monitor closely while hydrating Orthostatic hypotension On midodrine. BP ok, we can hold for now Hypothyroidism, On Synthroid CAD status post CABG Hold statin for ERICA. on Eliquis only (held) Mood disorder Continue home mood stabilizers Thrombocytopenia chronic Anemia of chronic kidney disease Hemoglobin stable DVT prophylaxis: sCDs for now due to hematuria Full code Quality Stroke Does the patient have a stroke diagnosis?: No VTE Prior VTE?: No VTE Risk Level:: Medical - moderate - high VTE Device Contraindication: Treatment Not Indicated VTE Drug Contraindication: N/A - Med Ordered
[2024-08-10] MEDS: 0.9 % Sodium Chloride 1,000 ML 80 ML IVCONT ×2 (10:43→23:27)
[2024-08-10 11:30] VITALS: BP 131/72
[2024-08-10 15:09] VITALS: BP 118/59; PULSE 74; RESP 18; TEMP 36.4; O2SAT 97
[2024-08-10 19:35] VITALS: BP 138/67; PULSE 80
[2024-08-10] MEDS: Metoprolol Succinate ER 12.5 MG HALFTAB.ER.24H PO (19:35)
[2024-08-10] MEDS: ALPRAZolam 0.5 MG TABLET PO (19:39)
[2024-08-10] MEDS: buPROPion HCl XL 150 MG TAB.ER.24H PO (19:39)
[2024-08-10] MEDS: Famotidine 20 MG TABLET PO (19:39)
[2024-08-10 23:27] VITALS: BP 133/63; PULSE 85; RESP 20; TEMP 36.8; O2SAT 96
[2024-08-10] MEDS: 0.9 % Sodium Chloride Flush 3 ML SYRINGE IVFLUSH (23:28)
--- NOTE | 2024-08-11 05:43 | PC.NURSE ---
Ricketts catheter in place, urine is coming out of meatus and soaking sameer pads that are placed due to leakage. RN assessed amount of saline in balloon and repositioned ricketts and re-instilled 10cc but continues to leak. Urine varies in color but very dark red/rust color continues. Will continue to monitor closely.
[2024-08-11] MEDS: Levothyroxine Sodium 88 MCG TABLET PO (05:54)
[2024-08-11 06:16] LABS: Hematocrit 31.9 % (42.0-52.0); Hemoglobin 10.7 g/dl (14.0-18.0); Mean Corpuscular HGB Conc 33.5 g/dl (31.0-36.0); Mean Corpuscular Hemoglobin 31.2 pg (27.0-33.0); Mean Platelet Volume 10.9 fL (9.4-12.4); Platelet Count 96 X10*3/uL (160-400); Red Blood Count 3.43 X10*6/uL (4.60-5.80); Red Cell Distribution Width 14.9 % (11.0-16.0); White Blood Count 8.5 X10*3/uL (4.8-10.8)
[2024-08-11 06:24] LABS: Anion Gap 13 (12-20); Blood Urea Nitrogen 84 mg/dL (9-16); Calcium 10.1 mg/dL (8.4-10.2); Carbon Dioxide 18 mmol/L (22-29); Chloride 119 mmol/L (96-108); Creatinine Clr Calc Pharmacy 8.3; Estimated Glomerular Filt Rate 10; Glucose Random 108 mg/dL (60-115); Potassium 4.3 mmol/L (3.3-5.1); Sodium 146 mmol/L (135-145)
[2024-08-11 07:07] VITALS: BP 128/58; PULSE 77; RESP 18; TEMP 36.7; O2SAT 98
--- NOTE | 2024-08-11 08:07 | P.PNIM_ITS ---
Subjective Subjective Date of Service: 08/11/24 Interval History: Burning at tip of penis Physical Exam 2 Vital Signs: Vital Signs: Last Vital Signs Temp 98.0 F 08/11/24 07:07 Pulse 77 08/11/24 07:07 Resp 18 08/11/24 07:07 BP 128/58 L 08/11/24 07:07 Pulse Ox 98 08/11/24 07:07 O2 Del Method Room Air 08/11/24 07:07 BMI result Body Mass Index 19.1 Const: Other: Constitutional : interactive, not in distress Cardiovascular : no JVP, no lower extremity edema Respiratory : bilateral chest movement, not in resp distress Gastrointestinal: soft, lax, Non tender Skin : Warm, Dry Urine: Lira in place Neurological : Alert & oriented , No focal deficit Objective Data Active Medications Acetaminophen (Acetaminophen 325 Mg Tablet) 650 mg PO Q6H PRN PRN Reason: Pain, Mild 1-3,fever,headache Last Admin: 08/09/24 20:36 Dose: 650 mg Documented By: MARGARET Alprazolam (Alprazolam 0.5 Mg Tablet) 0.5 mg PO BEDTIME [facility] Last Admin: 08/10/24 19:39 Dose: 0.5 mg Documented By: DELBERT Amiodarone HCl (Amiodarone Hcl 200 Mg Tablet) 200 mg PO DAILY [facility] Last Admin: 08/10/24 10:35 Dose: 200 mg Documented By: ROBIN Apixaban (Apixaban 2.5 Mg Tablet) 2.5 mg PO BID [facility] Last Admin: 08/09/24 08:57 Dose: Not Given Documented By: ROBIN Non-Admin Reason: bleeding, MD Held med Bisacodyl (Bisacodyl 10 Mg Supp.Rect) 10 mg [place] DAILY PRN PRN Reason: Constipation Bupropion HCl (Bupropion Hcl Xl 150 Mg Tab.Er.24h) 150 mg PO BEDTIME [facility] Last Admin: 08/10/24 19:39 Dose: 150 mg Documented By: DELBERT Calcium Carbonate (Calcium Carbonate 750 Mg Tab.Chew) 750 mg PO Q4H PRN PRN Reason: Heartburn Famotidine (Famotidine 20 Mg Tablet) 20 mg PO BEDTIME [facility] Last Admin: 08/10/24 19:39 Dose: 20 mg Documented By: DELBERT Fluticasone/Vilanterol (Fluticasone/Vilanterol 200/25 Blst.W.Dev) 1 puff INHALE RDAILY [facility] Last Admin: 08/11/24 07:41 Dose: Not Given Documented By: RY Non-Admin Reason: Patient Refused Gabapentin (Gabapentin 100 Mg Capsule) 100 mg PO BID [facility] Sodium Chloride (Ns) 1,000 mls @ 80 mls/hr IVCONT .[id number] [facility] Last Admin: 08/10/24 23:27 Dose: 80 mls/hr Documented By: DELBERT Levothyroxine Sodium (Levothyroxine Sodium 88 Mcg Tablet) 88 mcg PO DAILY@0600 [facility] Last Admin: 08/11/24 05:54 Dose: 88 mcg Documented By: DELBERT Loperamide HCl (Loperamide Hcl 2 Mg Capsule) 2 mg PO Q6H PRN PRN Reason: Loose Stool Magnesium Hydroxide (Milk Of Magnesia 30 Ml Oral.Susp) 30 ml PO DAILY PRN PRN Reason: Constipation Megestrol Acetate (Megestrol Acetate 400 Mg/10 Ml Oral.Susp) 400 mg PO BID [facility] Last Admin: 08/10/24 19:39 Dose: 400 mg Documented By: DELBERT Melatonin (Melatonin 3 Mg Tablet) 6 mg PO BEDTIME PRN PRN Reason: Insomnia Methylphenidate HCl (Methylphenidate Hcl 10 Mg Tablet) 20 mg PO DAILY [facility] Last Admin: 08/10/24 10:36 Dose: Not Given Documented By: ROBIN Non-Admin Reason: Patient Refused Metoprolol Succinate (Metoprolol Succinate Er 12.5 Mg Halftab.Er.24h) 12.5 mg PO BEDTIME [facility]; Protocol Last Admin: 08/10/24 19:35 Dose: 12.5 mg Documented By: DELBERT Midodrine (Midodrine Hcl 5 Mg Tablet) 5 mg PO TIDAC [facility] Last Admin: 08/10/24 16:30 Dose: Not Given Documented By: ROBIN Non-Admin Reason: BP WNL Ondansetron HCl (Ondansetron Hcl 4 Mg/2 Ml Vial) 4 mg IVPUSH Q8H PRN PRN Reason: Nausea and Vomiting Sodium Biphosphate/Sodium Phosphate (Sodium Phosphate,[place]-Dibasic 133 Ml Enema) 118 ml [place] DAILY PRN PRN Reason: Constipation Sodium Chloride (0.9 % Sodium Chloride Flush 3 Ml Syringe) 3 ml IVFLUSH QSHIFT [facility] Last Admin: 08/10/24 23:28 Dose: 3 ml Documented By: DELBERT Vitamin D (Cholecalciferol (Vitamin D3) 25 Mcg Tablet) 25 mcg PO DAILY [facility] Last Admin: 08/10/24 10:35 Dose: 25 mcg Documented By: ROBIN Labs 08/11/24 05:28 08/11/24 05:28 Labs: Laboratory Results - last 24 hr 08/10/24 08/11/24 07:39 05:28 MCV 93.0 MCH 31.2 MCHC 33.5 RDW 14.9 Plt Count 96 L MPV 10.9 Absolute Nucleated RBC 0.000 Nucleated RBC % (auto) 0.0 Anion Gap 15 13 Estim Creat Clear Calc 7.4 8.3 Estimated GFR 9 10 Random Glucose 103 108 Calcium 9.8 D 10.1 Assessment and Plan (1) Hyperkalemia: Status: Acute (2) Acute kidney injury: Status: Acute (3) Acute dehydration: Status: Acute (4) Hematuria: Status: Acute Plan 88M PMH CKD stage 4, chronic atrial fibrillation on anticoagulation, orthostatic hypotension on midodrine, chronic systolic heart failure, CAD status post CABG, [id number] 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 ERICA on CKD stage 4 with acute hyperkalemia and hypernatremia Baseline creatinine 2.8-3.6 (was recently in [place] [facility] asked for paperwork, still pending) improving on NS Hyperkalemia resolved with lokelma UA negative for blood, developed hematuria from Lira placement Nephrology following No obvious ureteral obstruction on CT imaging. Avoid nephrotoxins , hold Gabapentin Follow I\O and BMP Acute hematuria likely from Lira placement reported mass like lesion in bladder in CT scan Hold Eliquis and monitor hematuria - improving Outpatient urology eval Chronic atrial fibrillation Hold Eliquis for hematuria, continue amiodarone Chronic systolic heart failure It seems Lasix discontinued during previous hospitalization due to orthostasis. Monitor closely while hydrating Orthostatic hypotension On midodrine. BP ok, we can hold for now Hypothyroidism, On Synthroid CAD status post CABG Hold statin for ERICA. on Eliquis only (held) Mood disorder Continue home mood stabilizers Thrombocytopenia chronic Anemia of chronic kidney disease Hemoglobin stable DVT prophylaxis: sCDs for now due to hematuria Full code reason for continued hospitalization: ivf, erica Quality Stroke Does the patient have a stroke diagnosis?: No VTE Prior VTE?: No VTE Risk Level:: Medical - moderate - high VTE Device Contraindication: Treatment Not Indicated VTE Drug Contraindication: N/A - Med Ordered
[2024-08-11 09:14] VITALS: BP 134/65
[2024-08-11] MEDS: Cholecalciferol (Vitamin D3) 25 MCG TABLET PO (09:14)
[2024-08-11] MEDS: Megestrol Acetate 400 MG/10 ML ORAL.SUSP PO ×2 (09:14→20:06)
[2024-08-11] MEDS: Midodrine HCl 5 MG TABLET PO (09:14)
[2024-08-11] MEDS: Methylphenidate HCl 10 MG TABLET 20 MG PO (09:14)
[2024-08-11] MEDS: Amiodarone HCL 200 MG TABLET PO (09:14)
[2024-08-11] MEDS: 0.9 % Sodium Chloride Flush 3 ML SYRINGE IVFLUSH (09:19)
[2024-08-11] MEDS: Acetaminophen 325 MG TABLET 650 MG PO (09:26)
--- NOTE | 2024-08-11 09:47 | P.PNNP_ITS ---
Subjective Subjective Date of Service: 08/11/24 Interval history: Burning at tip of penis Physical Exam 2 Vital Signs: Vital Signs: Last Vital Signs Temp 98.0 F 08/11/24 07:07 Pulse 77 08/11/24 07:07 Resp 18 08/11/24 07:07 BP 134/65 08/11/24 09:14 Pulse Ox 98 08/11/24 07:07 O2 Del Method Room Air 08/11/24 07:07 BMI result Body Mass Index 19.1 Const: Other: Constitutional : interactive, not in distress Cardiovascular : no JVP, no lower extremity edema Respiratory : bilateral chest movement, not in resp distress Gastrointestinal: soft, lax, Non tender Skin : Warm, Dry Urine: Lira in place Neurological : Alert & oriented , No focal deficit Objective Data Labs 08/11/24 05:28 08/11/24 05:28 Labs: Laboratory Results - last 24 hr 08/11/24 05:28 WBC 8.5 RBC 3.43 L Hgb 10.7 L Hct 31.9 L MCV 93.0 MCH 31.2 MCHC 33.5 RDW 14.9 Plt Count 96 L MPV 10.9 Absolute Nucleated RBC 0.000 Nucleated RBC % (auto) 0.0 Sodium 146 H Potassium 4.3 Chloride 119 H Carbon Dioxide 18 L Anion Gap 13 BUN 84 H Creatinine 5.24 H* Estim Creat Clear Calc 8.3 Estimated GFR 10 Random Glucose 108 Calcium 10.1 Total Creatine Kinase 144 Procedures Date of Service Date of Service: 08/11/24 Assessment & Plan Assessment and plan (1) Hyperkalemia: Status: Acute (2) Acute kidney injury: Status: Acute (3) Acute dehydration: Status: Acute (4) Hematuria: Status: Acute Plan ERICA most likely due to severe dehydration. Clinically appears volume depleted. Imaging study did not reveal any obstruction. There were multiple cyst and an indeterminate lesion Recommendations IV hydration with the normal saline. Keep intake more than output. Watch urine output. Kristi p.r.n.. No absolute indication for dialysis at this time. Given his advanced age we will manage him conservatively. Time Spent With Patient Time: Total time managing care of this patient today ____ minutes. Progress Note: Quality Stroke Does the patient have a stroke diagnosis?: No
[2024-08-11] MEDS: 0.9 % Sodium Chloride 1,000 ML 75 ML IVCONT (15:00)
[2024-08-11 15:22] VITALS: BP 135/61; PULSE 69; RESP 20; TEMP 36.2; O2SAT 98
[2024-08-11 20:06] VITALS: BP 156/74; PULSE 78
[2024-08-11] MEDS: ALPRAZolam 0.5 MG TABLET PO (20:06)
[2024-08-11] MEDS: Metoprolol Succinate ER 12.5 MG HALFTAB.ER.24H PO (20:06)
[2024-08-11] MEDS: buPROPion HCl XL 150 MG TAB.ER.24H PO (20:06)
[2024-08-11] MEDS: Famotidine 20 MG TABLET PO (20:06)
[2024-08-11] MEDS: Melatonin 3 MG TABLET 6 MG PO (20:06)
[2024-08-11 20:16] VITALS: BP 156/74; PULSE 78; RESP 18; TEMP 36.6; O2SAT 98
[2024-08-11] MEDS: LORazepam 2 MG/ML VIAL 1 MG IVPUSH (21:46)
[2024-08-11 23:49] VITALS: BP 144/66; PULSE 69; RESP 18; TEMP 36.1; O2SAT 100
[2024-08-12 04:48] LABS: Glucose, Whole Blood 87 mg/dL (60-115)
--- NOTE | 2024-08-12 04:48 | P.EN_ITS ---
Event Note Date of Service: 08/12/24 Event Note: Moe chu called overhead. As per the nurse, he was found not breathing. He was checked 15 minutes prior to the code being called, when he was doing fine as per the nurse. No pulse upon examination and resuscitation began as per ACLS protocol with multiple rou nds of epinephrine, calcium gluconate, bicarb. POC 87 during the code. Refer to code sheet for details. Patient was intubated by ICU provider. Patient remained in asystole throughout. Time of : 04:44. Called Shlomo (brother) and offered condolences. certificate completed Time Spent With Patient Time: Total time managing care of this patient today ____ minutes.
--- NOTE | 2024-08-12 05:22 | PC.NURSE ---
Approximately around 04:20, this RN went to check on pt, with sitter at bedside and camera in room. Pt appeared pale, no pulse, CPR stared. Code blue called. Pt was resuscitated for about 25mins. Time of called at 04:44 by MD George. Family and HCP notified. [facility] called and declined pt.
--- NOTE | 2024-08-12 06:54 | P.DN_ITS ---
Discharge Sum: Prov Provider Primary care physician: Luis Ho MD Consults: 08/08/24 20:23 Consult to Nephrology Routine Consulting Provider: [facility] Reason for consultation: ERICA 08/09/24 18:41 Consult to Wound Care Routine Reason for consultation: policy Discharge Sum: Diag Contributing Factors (1) Hyperkalemia: (2) Acute kidney injury: (3) Acute dehydration: (4) Hematuria: Discharge Sum: Summary Date and Time Date of admission: 08/08/24 20:23 Date of : 08/12/24 Summary Details: from initial hpi: 88-year-old male with pertinent history of CKD stage 4, chronic atrial fibrillation on anticoagulation, orthostatic hypotension on midodrine, chronic systolic heart failure, CAD status post CABG, [id number] 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 Patient denies any complaints at the time of my evaluation. States he has had adequate p.o. intake and denies vomiting or diarrhea. He does note that he is here for altered kidney function. Blood work was done at [facility] and he was sent for evaluation of abnormal kidney function. No fever, chills, chest pain palpitations, shortness of breath, abdominal pain, changes in urinary or bowel habits. In the emergency department, kidney function found to be 6.21 and patient was resuscitated with IV crystalloids hospital course: Patient was admitted for acute kidney injury on CKD 4 with acute hyperkalemia and hypernatremia. He was given IV fluids with improvement. Hyperkalemia was treated with low, and resolved. Course complicated by hematuria likely traumatic and Eliquis was held. Renal function slowly improved. For chronic AFib Eliquis held for hematuria was continued on amiodarone. For chronic systolic failure patient was presenting hypovolemic and was improving on IV fluids, he did not appear to be had overload at any point. For hypothyroidism was continued on levothyroxine. For coronary artery disease Eliquis held as mentioned, statin held for ERICA. For anemia of CKD hemoglobin was stable. At about 04:30 on 08/12/2024 patient was found not breathing, code blue was called, found to be in asystole, despite epinephrine, calcium gluconate, sodium bicarb Rosc was not achieved. Patient for 4:44am. Additional Data Attending physician: Gian Victor MD
--- NOTE | 2024-08-24 07:00 | P.CDIM_ITS ---
PROVIDER RESPONSE TEXT: To clarify, the appropriate diagnosis supported by the clinical indicators: Encephalopathy: acute metabolic QUERY TEXT: PHYSICIAN'S DOCUMENTATION REQUEST Date of Query: 08/18/2024 11:05 AM EST Patient Name: Sim Chaves Admit Date: 08/09/2024 Dear Gian Victor MD, RETROSPECTIVE QUERY A review of the medical record indicates additional documentation may be needed. Please review below and update the documentation accordingly. Clinical Indicators: ED 08/08 - Altered mental status, altered since last night from SNF, confused about the reason of hos pital stay. Dehydrated, hypernatremia, poor historian ABN labs Based on the above, could you clarify if any of the following, is the most likely etiology of the con fusion/altered mental status? Encephalopathy Indicate type such as metabolic, toxic, septic, hypertensive, etc. Acute or subacute confusional state due to Specify known or suspected etiology Other etiology of the AMS Other (explain) Clinically unable to determine (explain) Thank you, Dalia Ojeda, CCS, CDIS Use of terms such as suspected, likely, concern for, or probable (associated with a specific diagnosi s that is being evaluated, monitored, or treated as if it exists) are acceptable and can be coded in the inpatient se tting, when documented at the time of discharge. Please use your independent medical judgment in providing your response. THIS QUERY IS PART OF THE PERMANENT MEDICAL RECORD
== END 2024-08-12 04:44 | disposition expired | DRG 682 ==
LOC: HO.ED 16:28 → HO.EDOVER 20:32 → HO.S3 23:27
PROVIDERS: Emergency Medicine; Student in an Organized Health Care Education/Training Program; Admitting Provider Student in an Organized Health Care Education/Training Program; Emergency Provider Emergency Medicine; PCP Family Medicine; Visit Provider Internal Medicine
DX: N17.9 Acute kidney failure, unspecified (principal); G93.41 Metabolic encephalopathy; C34.90 Malignant neoplasm of unspecified part of unspecified bronchus or lung; I50.22 Chronic systolic (congestive) heart failure; I48.20 Chronic atrial fibrillation, unspecified; C79.51 Secondary malignant neoplasm of bone; E87.0 Hyperosmolality and hypernatremia; E86.0 Dehydration; N18.4 Chronic kidney disease, stage 4 (severe); E87.5 Hyperkalemia; I46.9 Cardiac arrest, cause unspecified; R31.9 Hematuria, unspecified; I95.1 Orthostatic hypotension; D63.1 Anemia in chronic kidney disease; I25.10 Atherosclerotic heart disease of native coronary artery without angina pectoris; E03.9 Hypothyroidism, unspecified; Z79.01 Long term (current) use of anticoagulants; Z79.51 Long term (current) use of inhaled steroids; Z79.890 Hormone replacement therapy; Z79.899 Other long term (current) drug therapy
CPT/HCPCS: 36415; 70450; 74176; 80048; 80076; 81001; 82550; 82947; 83690; 83735; 84484; 85025; 85027; 93005; 99285; C1758; J0171; J2060; J7120

== ENCOUNTER → 2024-08-08 15:01 | Outpatient (BNV) | payer MEDICARE, SELFPAY | PROVIDERS: Admitting Provider Student in an Organized Health Care Education/Training Program; Emergency Provider Emergency Medicine; PCP Family Medicine; Visit Provider Internal Medicine Cardiovascular Disease | DX: I48.91 Unspecified atrial fibrillation (principal); R94.31 Abnormal electrocardiogram [ECG] [EKG]; E86.0 Dehydration | CPT/HCPCS: 93010 ==

== ENCOUNTER → 2024-08-08 18:12 | Outpatient (BNV) | payer MEDICARE, SELFPAY | PROVIDERS: Emergency Provider Emergency Medicine; PCP Family Medicine; Visit Provider Nuclear Medicine | DX: N28.1 Cyst of kidney, acquired (principal); I71.40 Abdominal aortic aneurysm, without rupture, unspecified; K63.89 Other specified diseases of intestine; N32.89 Other specified disorders of bladder | CPT/HCPCS: 74176 ==

== ENCOUNTER 2024-08-08 20:23 | Outpatient (BNV) | payer MEDICARE, SELFPAY | END 2024-08-09 00:39 | PROVIDERS: Admitting Provider Student in an Organized Health Care Education/Training Program; Emergency Provider Emergency Medicine; PCP Family Medicine; Visit Provider Radiology Diagnostic Radiology | DX: S09.90XA Unspecified injury of head, initial encounter (principal); W19.XXXA Unspecified fall, initial encounter | CPT/HCPCS: 70450 ==

== ENCOUNTER → 2024-08-08 20:23 | Outpatient (BNV) | payer MEDICARE, SELFPAY | PROVIDERS: Admitting Provider Student in an Organized Health Care Education/Training Program; Emergency Provider Emergency Medicine; PCP Family Medicine; Visit Provider Internal Medicine Hypertension Specialist | DX: E87.5 Hyperkalemia (principal); N17.9 Acute kidney failure, unspecified; E86.0 Dehydration; R31.9 Hematuria, unspecified | CPT/HCPCS: 99223; 99232 ==

== ENCOUNTER → 2024-08-08 20:23 | Outpatient (BNV) | payer MEDICARE, SELFPAY | PROVIDERS: Admitting Provider Student in an Organized Health Care Education/Training Program; Emergency Provider Emergency Medicine; PCP Family Medicine; Visit Provider Student in an Organized Health Care Education/Training Program | DX: N17.9 Acute kidney failure, unspecified (principal); N18.4 Chronic kidney disease, stage 4 (severe); I48.91 Unspecified atrial fibrillation; I50.9 Heart failure, unspecified | CPT/HCPCS: 99223 ==